=== PATIENT | female | born 1985 | race Caucasian/White ===

== ENCOUNTER 2016-08-15 10:09 | Emergency (ER) | payer SELFPAY ==
[~2016-08-15] VITALS: Ht 165.1 cm; Wt 73.0 kg
[2016-08-15 10:19] VITALS: BP 111/64
== END 2016-08-15 15:34 | disposition left against medical advice (07) ==
LOC: ER 11:20
DX: Z53.21 Procedure and treatment not carried out due to patient leaving prior to being seen by health care provider (principal)